=== PATIENT | female | born 1945 | race Caucasian/White ===

== ENCOUNTER 2022-05-25 21:41 | Emergency (ER) | payer MEDICARE, SELFPAY ==
[2022-05-25 21:46] VITALS: BP 149/87; PULSE 81; RESP 20; TEMP 36.6; O2SAT 100
--- NOTE | 2022-05-25 23:24 | ED.NAVMDI ---
HPI - Nausea/Vomiting/Diarrhea General Chief complaint: Nausea/Vomiting/Diarrhea Stated complaint: Dizziness, n/v, flu A + History of Present Illness HPI Narrative: 77-year-old female presents to the emergency room for evaluation of nausea vomiting. Patient states last week she was diagnosed with COVID and the flu, and her primary care provider put her on Tamiflu and Paxil bid. Patient states ever since she is been on those medications she had multiple episodes of nonbilious and nonbloody emesis as well as diarrhea. Patient also complaining of abdominal spasms. Patient states she is still experiencing cough sinus congestion. Related Data Allergies Allergy/AdvReac Type Severity Reaction Status Date / Time Sulfa (Sulfonamide AdvReac Nausea Verified 05/25/22 23:36 Antibiotics) Review of Systems Review of Systems: CONSTITUTIONAL: Denies fever, chills, or sweats. EYES: Denies visual changes, redness, or discharge. ENT: Reports sinus congestion, sore throat CARDIOVASCULAR: Denies chest pain, palpitations, or edema. RESPIRATORY: Reports cough GASTROINTESTINAL: Reports abdominal pain, nausea, vomiting, and diarrhea. GENITOURINARY: Denies dysuria or hematuria. SKIN: Denies rash or itching. MUSCULOSKELETAL: Denies back pain, joint pain, or myalgia. NEUROLOGIC: Denies headache, numbness, dizziness, or weakness. PSYCHIATRIC: Denies anxiety or depression. Exam Narrative: GENERAL: Ill-appearing, well-nourished, no physical limitations, and in no acute distress. HEAD: Normocephalic, atraumatic. EYES: Conjunctivae normal, PERRLA and EOMI. ENT: External nose normal, Nares clear, no rhinorrhea or epistaxis. Mucous membranes dry. Oropharynx without tonsillar hypertrophy exudate or other lesions. External ears normal, bilateral TMs normal bilaterally NECK: Supple. No adenopathy or masses. CHEST: Clear to auscultation. No respiratory distress. No wheezes rales or rhonchi. HEART: Regular rate and rhythm. No murmur heard. Normal peripheral pulses. ABDOMEN: Soft, nontender, nondistended, normal active bowel sounds. EXTREMITIES: Normal range of motion. No edema. No clubbing or cyanosis SKIN: Warm, dry, no rash. No noted wounds NEURO: No focal deficits. Alert and oriented x3. MAEW. CN's II-XI intact bilaterally, normal gait PSYCH: Cooperative. Normal mood and affect. Course Vital Signs Vital signs: Vital Signs Temperature 36.6 C 05/25/22 21:46 Pulse Rate 81 05/25/22 21:46 Respiratory Rate 20 05/25/22 21:46 Blood Pressure 149/87 H 05/25/22 21:46 Pulse Oximetry 100 05/25/22 21:46 Oxygen Delivery Room Air 05/25/22 21:46 Temperature 36.6 C 05/25/22 21:46 Pulse Rate 81 05/25/22 21:46 Respiratory Rate 20 05/25/22 21:46 Blood Pressure 149/87 H 05/25/22 21:46 Pulse Oximetry 100 05/25/22 21:46 Oxygen Delivery Room Air 05/25/22 21:46 MDM - Nausea/Vomiting/Diarrhea Lab Data 05/25/22 23:40 05/25/22 23:40 Labs: Lab Results 05/25/22 05/25/22 05/25/22 Range/Units 23:40 23:40 23:40 WBC 3.5 L (4.5-10.0) K/mm3 RBC 4.62 (4.2-5.4) M/mm3 Hgb 14.1 (12.0-15.0) g/dL Hct 42.9 (37.0-47.0) % MCV 92.9 (80-100) fl MCH 30.5 (26-34) pg MCHC 32.9 (32-36) g/dl RDW 13.5 (11.5-14.5) % Plt Count 244 (150-375) k/mm3 MPV 10.2 (7.4-10.4) fl Immature Gran % (Auto) 0.3 (0-0.5) % Neut % (Auto) 49.4 (45.5-73.1) % Lymph % (Auto) 42.0 (18.3-44.2) % [place] % (Auto) 7.7 (2.6-8.5) % Eos % (Auto) 0.0 (0-4.4) % Baso % (Auto) 0.6 (0.2-1.2) % Lymph # (Auto) 1.47 (0.9-3.2) K/mm3 [place] # (Auto) 0.3 (0.1-0.6) K/mm3 Eos # (Auto) 0.0 (0-0.3) K/mm3 Baso # (Auto) 0.0 (0.0-0.1) K/mm3 Abs Immat Gran (auto) 0.01 (0.00-0.031) K/mm3 Absolute Neuts (auto) 1.7 (1.3-6.7) K/mm3 Absolute Nucleated RBC 0.0 (0.0-0.012) K/mm3 Nucleated RBC % 0.0 (0.0-0.2) % Sodium 141 (137-145) mmol/L Potassium
[2022-05-25] MEDS: ONDANSETRON INJ 4 MG/2 ML VIAL IV PUSH (23:36)
[2022-05-25] MEDS: SODIUM CHLORIDE 0.9% IV 1,000 ML 999 ML IV CONT (23:36)
[2022-05-25 23:46] LABS: Basophils Percent Auto 0.6 % (0.2-1.2); Hematocrit 42.9 % (37.0-47.0); Hemoglobin 14.1 g/dL (12.0-15.0); Immature Granulocyte Absolute 0.01 K/mm3 (0.00-0.031); Immature Granulocyte Percent A 0.3 % (0-0.5); Lymphocytes Absolute Auto 1.47 K/mm3 (0.9-3.2); Mean Corpuscular HGB Conc 32.9 g/dl (32-36); Mean Corpuscular Hemoglobin 30.5 pg (26-34); Mean Corpuscular Volume 92.9 fl (80-100); Mean Platelet Volume 10.2 fl (7.4-10.4); Monocytes Absolute Auto 0.3 K/mm3 (0.1-0.6); Monocytes Percent Auto 7.7 % (2.6-8.5); Neutrophils Absolute Auto 1.7 K/mm3 (1.3-6.7); Neutrophils Percent Auto 49.4 % (45.5-73.1); Platelet Count Result 244 k/mm3 (150-375); Red Blood Count 4.62 M/mm3 (4.2-5.4); Red Cell Distribution Width 13.5 % (11.5-14.5); White Blood Count 3.5 K/mm3 (4.5-10.0)
[2022-05-25 23:55] LABS: Alanine Aminotransferase 60 U/L (6-35); Albumin Level 4.9 g/dL (3.5-5.1); Alkaline Phosphatase 79 U/L (38-126); Anion Gap 11 mmol/L (8-16); Aspartate Amino Transferase 59 U/L (14-36); Bilirubin,Total 0.7 mg/dL (0.2-1.3); Blood Urea Nitrogen 13 mg/dL (7-17); Calcium 9.3 mg/dL (8.4-10.2); Carbon Dioxide 28 mmol/L (22-30); Chloride 102 mmol/L (98-107); Estimated Glomerular Filt Rate > 60; Glucose 111 mg/dL (65-110); Sodium 141 mmol/L (137-145)
[2022-05-26 00:42] VITALS: BP 136/78; PULSE 82; RESP 20; O2SAT 100
== END 2022-05-26 00:46 | disposition home or self-care (01) ==
PROVIDERS: Emergency Provider Nurse Practitioner Family; PCP Internal Medicine
DX: R11.2 Nausea with vomiting, unspecified (principal); T37.5X5A Adverse effect of antiviral drugs, initial encounter; U07.1 COVID-19; J10.1 Influenza due to other identified influenza virus with other respiratory manifestations
CPT/HCPCS: 36415; 80053; 83605; 85025; 96361; 96374; 99284; J2405; J7030

== ENCOUNTER 2022-05-26 16:41 | Emergency (ER) | payer MEDICARE, SELFPAY ==
[2022-05-26] VITALS (19 sets, daily range): BP systolic 114–146; BP diastolic 70–92; PULSE 66–98; RESP 12–18; TEMP 36.1–36.9; O2SAT 92–100
--- NOTE | ~2022-05-26 | XR_ITS ---
EXAMINATION: XR chest 1V portable DATE: 05/27/2022 00:39 INDICATION: COVID-19 pneumonia. TECHNIQUE: A single frontal view of the chest was obtained. COMPARISON: None. FINDINGS: The chest demonstrates clear lungs without pneumonia, pleural effusion, or pneumothorax. Th e heart size is normal. IMPRESSION: 1. No acute cardiopulmonary disease. Reviewed, dictated and finalized at location [facility]
--- NOTE | 2022-05-26 17:19 | PC.NURSE ---
pt asked to leave d/t him being COVID+. pt asked where he should go, he was told to go home and quarratine in order to not spread the disease. pt verbalized she had means of communicating with her while she was here. pt had to be asked to leave multiple times by this RN. pt finally ambulatory out of dept.
[2022-05-26 17:22] LABS: Basophils Percent Auto 0.3 % (0.2-1.2); Hematocrit 41.5 % (37.0-47.0); Hemoglobin 13.8 g/dL (12.0-15.0); Lymphocytes Absolute Auto 0.88 K/mm3 (0.9-3.2); Lymphocytes Percent Auto 30.1 % (18.3-44.2); Mean Corpuscular HGB Conc 33.3 g/dl (32-36); Mean Corpuscular Hemoglobin 30.8 pg (26-34); Mean Corpuscular Volume 92.6 fl (80-100); Mean Platelet Volume 10.2 fl (7.4-10.4); Monocytes Absolute Auto 0.2 K/mm3 (0.1-0.6); Monocytes Percent Auto 6.2 % (2.6-8.5); Neutrophils Absolute Auto 1.9 K/mm3 (1.3-6.7); Neutrophils Percent Auto 63.4 % (45.5-73.1); Platelet Count Result 215 k/mm3 (150-375); Red Blood Count 4.48 M/mm3 (4.2-5.4); Red Cell Distribution Width 13.2 % (11.5-14.5); White Blood Count 2.9 K/mm3 (4.5-10.0)
[2022-05-26 17:36] LABS: Alanine Aminotransferase 55 U/L (6-35); Albumin Level 4.5 g/dL (3.5-5.1); Alkaline Phosphatase 74 U/L (38-126); Anion Gap 10 mmol/L (8-16); Aspartate Amino Transferase 50 U/L (14-36); Bilirubin,Total 0.8 mg/dL (0.2-1.3); Blood Urea Nitrogen 12 mg/dL (7-17); Calcium 8.7 mg/dL (8.4-10.2); Carbon Dioxide 25 mmol/L (22-30); Chloride 107 mmol/L (98-107); Estimated CRCL calculation 78 ml/min; Estimated Glomerular Filt Rate > 60; Glucose 105 mg/dL (65-110); Lipase 157 U/L (23-300); Potassium 3.7 mmol/L (3.4-5.0); Sodium 142 mmol/L (137-145)
--- NOTE | 2022-05-26 21:50 | ED.WEAKNESS ---
HPI - Weakness General Chief complaint: Weakness Stated complaint: sick with the flu and covid Time Seen by Provider: 05/26/22 21:48 Source: patient Limitations: no limitations History of Present Illness HPI Narrative: Patient is 77 years old white female came from home complaining of nausea and not able to keep anything down. Patient tested positive for COVID and the flu sometime last week. Was started on Tamiflu and Paxilovid by her family physician at that time. Came to our emergency room yesterday with new onset of nausea vomiting and diarrhea. Patient received IV fluid and Zofran, was feeling okay and was discharged home on Zofran and to stop paxlovid and Tamiflu. Patient is poor historian, no family member at the bedside at this time. Related Data Allergies Allergy/AdvReac Type Severity Reaction Status Date / Time Sulfa (Sulfonamide AdvReac Nausea Verified 05/25/22 23:36 Antibiotics) Review of Systems Review of Systems: All systems reviewed & are unremarkable except as noted in HPI and below Exam Narrative: General appearance: Well-developed, well-nourished, looks ill Skin: Normal color Head: Normocephalic, nontraumatic Eyes: Clear conjunctiva ENT: Oropharynx normal, ears normal, nose normal Neck: Supple, nontender Chest and respiratory: Airway patent, no respiratory distress, no accessory muscle use Heart: Regular rate/rhythm Abdomen: Soft, nontender, no organomegaly, quiet bowel sounds Vascular: Normal peripheral pulses, normal capillary refill. Musculoskeletal: Normal range of motion, nontender back Neurologic: Alert and oriented ?3, [employer] is normal as tested, no gross motor deficit Course Vital Signs Vital signs: Vital Signs Temperature 36.6 C 05/26/22 16:43 Pulse Rate 98 05/26/22 16:43 Respiratory Rate 17 05/26/22 16:43 Blood Pressure 137/83 05/26/22 16:43 Pulse Oximetry 98 05/26/22 16:43 Temperature 36.9 C 05/26/22 21:16 Pulse Rate 71 05/27/22 00:45 Respiratory Rate 16 05/27/22 00:45 Blood Pressure 131/70 05/26/22 22:45 Pulse Oximetry 99 05/27/22 00:45 MDM - Weakness Differential Diagnosis Differential diagnosis: Likely hypoglycemia, dehydration and other (Electrolyte imbalance, general weakness) Lab Data 05/26/22 17:15 12/21/22 17:15 Labs: Lab Results 05/26/22 05/26/22 05/26/22 Range/Units 17:15 17:15 21:38 WBC 2.9 L (4.5-10.0) K/mm3 RBC 4.48 (4.2-5.4) M/mm3 Hgb 13.8 (12.0-15.0) g/dL Hct 41.5 (37.0-47.0) % MCV 92.6 (80-100) fl MCH 30.8 (26-34) pg MCHC 33.3 (32-36) g/dl RDW 13.2 (11.5-14.5) % Plt Count 215 (150-375) k/mm3 MPV 10.2 (7.4-10.4) fl Immature Gran % (Auto) 0.0 (0-0.5) % Neut % (Auto) 63.4 (45.5-73.1) % Lymph % (Auto) 30.1 (18.3-44.2) % [place] % (Auto) 6.2 (2.6-8.5) % Eos % (Auto) 0.0 (0-4.4) % Baso % (Auto) 0.3 (0.2-1.2) % Lymph # (Auto) 0.88 L (0.9-3.2) K/mm3 [place] # (Auto) 0.2 (0.1-0.6) K/mm3 Eos # (Auto) 0.0 (0-0.3) K/mm3 Baso # (Auto) 0.0 (0.0-0.1) K/mm3 Abs Immat Gran (auto) 0.00 (0.00-0.031) K/mm3 Absolute Neuts (auto) 1.9 (1.3-6.7) K/mm3 Absolute Nucleated RBC 0.0 (0.0-0.012) K/mm3 Nucleated RBC % 0.0 (0.0-0.2) % Sodium 142 (137-145) mmol/L Potassium 3.7 (3.4-5.0) mmol/L Chloride 107 (98-107) mmol/L Carbon Dioxide 25 (22-30) mmol/L Anion Gap 10 (8-16) mmol/L BUN 12 (7-17) mg/dL Creatinine 0.50 L (0.7-1.0) mg/dL Estim Creat Clear Calc 78 ml/min Estimated GFR > 60 (59 - ) Glucose 105 (65-110) mg/dL Calcium 8.7 (8.4-10.2) mg/dL Total Bilirubin 0.8
[2022-05-26 22:12] LABS: Add Urine Microscopic? YES; Appearance Urine Clear (Clear); Bilirubin Urine 1+ (Negative); Blood Urine Trace-Intact (Negative); Color Urine Light Yellow (Yellow); Glucose Urine UA Negative (Negative); Ketones Urine 3+ mg/dL (Negative); Leukocyte Esterase Ur Negative LEU/UL (Negative); Nitrate Urine Negative (Negative); Protein Urine Trace mg/dL (Negative); Urobilinogen Urine 0.2 mg/dL (<2.0)
[2022-05-26] MEDS: SODIUM CHLORIDE 0.9% IV 1,000 ML 999 ML IV CONT (22:22)
[2022-05-26] MEDS: ONDANSETRON INJ 4 MG/2 ML VIAL IV PUSH (22:22)
[2022-05-26 22:35] LABS: Bacteria Urine Trace /hpf; Mucus Urine Rare /lpf; WBC Urine 0-3 /hpf
[2022-05-27 00:13] VITALS: PULSE 75; RESP 16; O2SAT 98
--- NOTE | 2022-05-27 00:18 | PM.IMHP ---
H&P: HPI History of Present Illness Date/Time: 05/27/22 00:18 Chief Complaint: Weakness, unable to tolerate p.o. intake. Narrative: This is a 77-year-old lady with a past medical history including but not limited to recent episodes of when COVID infection will present to the emergency department with complaints of generalized weakness. The patient was diagnosed with both the flu and COVID-19 about a week ago. She was managed with Tamiflu and packs of the with her primary care. The patient reports that ever since she has had multiple episode of nonbilious and nonbloody emesis associated with diarrhea and abdominal spasm. She presented to the emergency department on 05/25/2022 and was appropriately managed with IV fluids and Zofran with improvement of her symptoms. Basic labs were drawn which did reveal any abnormality. At the time she was still experiencing cough and sinus congestion but chest x-ray was unrevealing and patient was sent home. Tonight she she present with similar complaints of nausea associated with vomiting diarrhea and dizziness. The patient is a poor historian and history is gathered from the ED physician. On arrival to the emergency department the patient had the following vital signs temperature 36.6?, pulse rate 98, respiratory rate 17, blood pressure 137/83 and pulse ox 98% on room air. Her CBC shows a WBC of 2.9, hemoglobin 13.8, hematocrit 41.5 and a platelet count of 215. Her chemistry shows a sodium of 142, potassium 3.7, chloride 107, bicarbonate 25, BUN 12 and a creatinine of 0.5. Calcium is 8.7. LFTs are total bilirubin 0.8, AST 50, ALT 55 and alkaline phosphatase of 74. Total protein is 8 albumin is 4.5 and lipase 157. The patient was treated with infusion of 1 L bolus of normal saline and Zofran 4 mg IV push. The hospital medicine service was consulted for further evaluation and management. Review of Systems Review of Systems: All systems reviewed & are unremarkable except as noted in HPI and below Meds Home Medications and Allergies Allergies Allergy/AdvReac Type Severity Reaction Status Date / Time Sulfa (Sulfonamide AdvReac Nausea Verified 05/25/22 23:36 Antibiotics) Vital Signs Vital Signs - 24 hr 05/26/22 16:43 05/26/22 19:41 05/26/22 21:15 Temperature 97.8 F 97.0 F L Pulse Rate 98 81 72 Respiratory Rate 17 14 Blood Pressure 137/83 114/91 H Pulse Oximetry 98 100 05/26/22 21:16 05/26/22 21:39 05/26/22 21:41 Temperature 98.5 F Pulse Rate 70 74 Respiratory Rate Blood Pressure 142/73 H 146/75 H Pulse Oximetry 05/26/22 21:48 05/26/22 21:15 05/26/22 21:30 Temperature Pulse Rate 98 72 74 Respiratory Rate 16 Blood Pressure 125/82 Pulse Oximetry 100 97 05/26/22 21:40 05/26/22 21:45 05/26/22 21:46 Temperature Pulse Rate 66 94 98 Respiratory Rate Blood Pressure 142/73 H 125/92 H Pulse Oximetry 100 100 Exam Narrative: GENERAL: The patient is alert and oriented, in no apparent distress. She is pleasant and conversant in full sentences. HEENT: Pupils are equally round and reactive to light. Extraoccular muscles are intact. Oral mucous membranes are moist without lesions. NECK: The patient has no noted JVD. No cervical palpable lymphadenopathy. CHEST/LUNGS: Lungs are clear bilaterally without rhonchi, rales, or wheezes. There is no subcutaneous air appreciated. There is no tenderness to the chest wall. HEART: The patient has a regular rate and rhythm. No murmurs, rubs, or gallops are appreciated. Distal pulses are 2+. No carotid bruits appreciated. ABDOMEN: The patient?s abdomen is soft, nontender, and nondistended. Bowel sounds are positive. No organomegaly is appreciated. No masses are appreciated. There are no peritoneal signs. There is no Hemphill?s sign. EXTREMITIES: The patient has no peripheral edema. There is no focal long bone tenderness or deformity. SKIN: The patient?s skin is warm and dry, without rashes or lesions. PSYCHIATRIC:
[2022-05-27 00:22] VITALS: PULSE 83; RESP 16; O2SAT 96
[2022-05-27 00:30] VITALS: PULSE 79; RESP 16
[2022-05-27 00:45] VITALS: PULSE 71; RESP 16; O2SAT 99
[2022-05-27] MEDS: SODIUM CHLORIDE 0.9% IV 1,000 ML 125 ML IV CONT (01:15)
[2022-05-27] MEDS: ONDANSETRON INJ 4 MG/2 ML VIAL IV PUSH (01:15)
[2022-05-27 01:45] LABS: Influenza A QL RT-PCR Negative (Negative); Influenza B QL RT-PCR Negative (Negative); RSV RNA, RT-PCR Negative (Negative); SARS-CoV-2 RNA PCR Positive
== END 2022-05-27 03:15 | disposition left against medical advice (07) ==
PROVIDERS: Emergency Medicine; Emergency Provider Emergency Medicine; PCP Internal Medicine
DX: U07.1 COVID-19 (principal); J11.1 Influenza due to unidentified influenza virus with other respiratory manifestations; R11.2 Nausea with vomiting, unspecified; R19.7 Diarrhea, unspecified; R62.7 Adult failure to thrive; Z68.24 Body mass index [BMI] 24.0-24.9, adult
CPT/HCPCS: 36415; 71045; 80053; 81001; 83690; 85025; 87637; 96361; 96374; 96376; 99284; J2405; J7030